=== PATIENT | female | born 1995 | race Caucasian/White ===

== ENCOUNTER → 2021-01-19 11:41 | Outpatient (CLI) | payer OTHER, SELFPAY ==
[2021-01-19 14:25] LABS: COVID19 -Nasal RAPID Negative (Negative)
[2021-01-21 04:07] LABS: C.trachomatis RNA Negative (Negative); N.gonorrhoeae RNA Negative (Negative)
== END ==
PROVIDERS: PCP Registered Nurse; Visit Provider Nurse Practitioner
DX: Z20.822 Contact with and (suspected) exposure to COVID-19 (principal); A64 Unspecified sexually transmitted disease; J02.9 Acute pharyngitis, unspecified
CPT/HCPCS: 87070; 87491; 87591; 87635